=== PATIENT | male | born 1970 | race American Indian/Alaskan Native ===

== ENCOUNTER 2017-04-05 08:42 | Emergency (ER) | payer OTHER ==
[2017-04-05] MEDS ORDERED: TORADOL IM ONE (10:55)
--- NOTE | 2017-04-05 11:08 | Emergency Department Report ---
ED Neck Pain/Injury HPI - General Chief Complaint: Neck Pain/Injury Stated Complaint: LEFT NECK/HEAD PAIN Time Seen by Provider: 04/05/17 10:50 Mode of arrival: Ambulatory Limitations: No Limitations - History of Present Illness Initial Comments: 46-year-old male complains of 3 days of left-sided neck pain. Patient states he was again ranged few days ago and has successfully developed some left-sided neck pain. He is limited range of motion due to pain. He had some trouble sleeping last night due to pain. No numbness tingling and chest pain shortness of breath. Denies pain in the middle and neck. MD Complaint: neck pain -: days(s) (3) Radiation: left lateral Quality: sharp Consistency: constant Improves With: none Worsens With: movement of neck Associated Symptoms: denies: headache, fever, numbness, tingling, weakness, vertigo, difficulty walking, swollen glands - Related Data Previous Rx's Medication Instructions Recorded Last Taken Type Cyclobenzaprine [Flexeril 10 MG 10 mg PO TID PRN #14 tablet 04/05/17 Unknown Rx TAB] Ibuprofen [Motrin] 600 mg PO Q8H PRN #30 tablet 04/05/17 Unknown Rx ED Review of Systems ROS: Stated complaint: LEFT NECK/HEAD PAIN Other details as noted in HPI ENT: denies: ear pain, throat pain, hearing loss Respiratory: denies: cough Cardiovascular: denies: chest pain, palpitations Musculoskeletal: denies: back pain, joint swelling, arthralgia Neurological: denies: headache, weakness, numbness, paresthesias, confusion, abnormal gait, other ED Past Medical Hx - Past Medical History Previous Medical History?: No - Surgical History Past Surgical History?: No - Social History Smoking Status: Never Smoker Substance Use Type: Alcohol - Medications Home Medications: Home Medications Medication Instructions Recorded Confirmed Last Taken Type Cyclobenzaprine [Flexeril 10 MG 10 mg PO TID PRN #14 tablet 04/05/17 Unknown Rx TAB] Ibuprofen [Motrin] 600 mg PO Q8H PRN #30 tablet 04/05/17 Unknown Rx ED Physical Exam - General Limitations: No Limitations General appearance: alert, in no apparent distress - Head Head exam: Present: atraumatic, normocephalic - Eye Eye exam: Present: normal appearance. Absent: scleral icterus, conjunctival injection - ENT ENT exam: Present: mucous membranes moist - Neck Neck exam: Present: normal inspection, tenderness (paracervical tenderness in the left lateral neck, no midline tenderness). Absent: full ROM (Limited range of motion due to pain when rotating to the right), lymphadenopathy, thyromegaly - Extremities Exam Extremities exam: Present: normal inspection, normal capillary refill - Neurological Exam Neurological exam: Present: alert, oriented X3, CN II-XII intact. Absent: motor sensory deficit - Psychiatric Psychiatric exam: Present: normal affect, normal mood - Skin Skin exam: Present: warm, dry, intact ED Course Vital Signs 04/05/17 08:47 Temperature 98.1 F Pulse Rate 78 Respiratory 18 Rate Blood Pressure 148/97 O2 Sat by Pulse 100 Oximetry ED Medical Decision Making - Medical Decision Making Patient is a 46-year-old male without evidence of significant neck injury. He has likely muscle spasm and paracervical muscles. Plan to treat with NSAIDs and muscle relaxants. The patient and agrees with plan. Critical care attestation.: If time is entered above; I have spent that time in minutes in the direct care of this critically ill patient, excluding procedure time. ED Disposition Clinical Impression: Muscle spasms of neck Disposition: DC-01 TO HOME OR SELFCARE Is pt being admited?: No Condition: Stable Instructions: Muscle Spasm (ED) Prescriptions: Cyclobenzaprine [Flexeril 10 MG TAB] 10 mg PO TID PRN #14 tablet PRN Reason: Muscle Spasm Ibuprofen [Motrin] 600 mg PO Q8H PRN #30 tablet PRN Reason: Pain Referrals: PRIMARY CARE, [Primary Care Provider] - 3-5 Days
[2017-04-05 11:16] VITALS: BP 141/94
== END 2017-04-05 11:17 | disposition home or self-care (01) ==
LOC: ED 08:42
DX: M54.2 Cervicalgia (principal); M62.838 Other muscle spasm; Z88.0 Allergy status to penicillin
CPT/HCPCS: 96372; 99282; J1885